=== PATIENT | male | born 2000 | race Caucasian/White ===

== ENCOUNTER 2022-04-10 15:17 | Emergency (ER) | payer BC, SELFPAY ==
--- NOTE | ~2022-04-10 | XR_ITS ---
XR chest 2V DATE: 04/10/2022 18:53 INDICATION: Right chest pain TECHNIQUE: PA and lateral views COMPARISON: None FINDINGS: Normal heart size. No hilar or mediastinal enlargement. No pulmonary infiltrate or consolid ation, pleural effusion or pulmonary vascular congestion or pneumothorax. IMPRESSION: Negative Reviewed, dictated and finalized at location A. IMPRESSION: Negative
[2022-04-10 15:28] VITALS: BP 183/88; PULSE 96; RESP 18; TEMP 36.6; O2SAT 100
--- NOTE | 2022-04-10 15:32 | ECG_ITS ---
Measurements Intervals [place] Rate: 90 P: 57 NM: 164 QRS: 69 QRSD: 101 T: 11 QT: 344 QTc: 421 Interpretive Statements SINUS RHYTHM WITH SINUS ARRHYTHMIA NONSPECIFIC T-WAVE ABNORMALITY BORDERLINE ECG NO PREVIOUS ECG AVAILABLE FOR COMPARISON Electronically Signed On 04-10-2022 16:28:27 CDT by Mamadou Ku M.D.
[2022-04-10 18:44] VITALS: BP 155/86; PULSE 102; RESP 16; O2SAT 98
--- NOTE | 2022-04-10 18:47 | ED.GENADULT ---
HPI - General Adult General Chief complaint: Unspecified <Taylor Rojsa PA-C - Last Filed: 04/10/22 20:57> Stated complaint: Lighheaded, Request Evaulation <JEFFERSON Orr Last Filed: 04/10/22 20:57> Time Seen by Provider: 04/10/22 18:41 <Taylor Rojas PA-C - Last Filed: 04/10/22 20:57> Source: patient <JEFFERSON Orr Last Filed: 04/10/22 20:57> Mode of arrival: ambulatory <JEFFERSON Orr Last Filed: 04/10/22 20:57> Limitations: no limitations <Taylor Rojas PA-C - Last Filed: 04/10/22 20:57> History of Present Illness HPI narrative: This is a 21-year-old male that presents to the emergency department after having episodes of chest pain today. Reports he was at work and right-sided chest tightness. This lasted for a few minutes. It was associated with some lightheadedness. 911 was called. He was evaluated by EMS. His symptoms had resolved prior to their arrival. Reports he was driving home later and on the ride he experienced a similar episode. He once again called 911, but his symptoms resolved again prior to them arriving. He decided to come to the ER to be evaluated. He has no current symptoms. Denies chest pain or shortness of breath. <Taylor Rojas PA-C - Last Filed: 04/10/22 20:57> Related Data Allergies/adverse reactions: Allergies Allergy/AdvReac Type Severity Reaction Status Date / Time No Known Allergies Allergy Verified 04/10/22 19:02 <Taylor Rojas PA-C - Last Filed: 04/10/22 20:57> Review of Systems Review of Systems: CONSTITUTIONAL: Denies fever CARDIOVASCULAR: Reports chest pain. Denies palpitations, or edema. RESPIRATORY: Denies dyspnea. <JEFFERSON Orr Last Filed: 04/10/22 20:57> All systems reviewed & are unremarkable except as noted in HPI and below <Taylor Rojas PA-C - Last Filed: 04/10/22 20:57> FOR[facility], LAT[facility] Past Medical History Medical History: Medical History (Updated 04/11/22 @ 00:00 by Alok Jesi) No active medical problems <Taylor Rojas PA-C - Last Filed: 04/10/22 20:57> Social History Social History: Social History (Updated 04/10/22 @ 18:47 by Taylor Rojas PA-C) Smoking status: Never smoker <Taylor Rojas PA-C - Last Filed: 04/10/22 20:57> Exam Narrative: GENERAL: Well-appearing, well-nourished, and in no acute distress. HEAD: Normocephalic, atraumatic. EYES: PERRLA and EOMI. ENT: Nares clear, no rhinorrhea or epistaxis. Mucous membranes moist. Oropharynx without tonsillar hypertrophy exudate or other lesions. NECK: Supple. No adenopathy or masses. CHEST: Clear to auscultation. No respiratory distress. No wheezes rales or rhonchi HEART: Regular rate and rhythm. No murmur heard. Normal peripheral pulses. EXTREMITIES: Normal range of motion. No edema. SKIN: Warm, dry, no rash. NEURO: No focal deficits. Alert and oriented x3. 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 I have had [id number] time with the patient and his Hazel. patient's workup was negative and he is appropriate for outpatient follow-up with his primary care physician. <Sai Lilly MD - Last Filed: 04/11/22 12:35> Vital Signs Vital signs: Vital Signs Temperature 97.9 F 04/10/22 15:28 Pulse Rate 96 04/10/22 15:28 Respiratory Rate 18 04/10/22 15:28 Blood Pressure 183/88 H 04/10/22 15:28 Pulse Oximetry 100 04/10/22 15:28 Oxygen Delivery Room Air 04/10/22 15:28 Temperature 97.9 F 04/10/22 15:28 Pulse Rate 86 04/10/22 21:05 Respiratory Rate 16 04/10/22 21:05 Blood Pressure 155/90 H 04/10/22 19:01 Pulse Oximetry 100 04/10/22 21:05 Oxygen Delivery Room Air 04/10/22 15:28 <Taylor Rojas PA-C - Last Filed: 04/10/22 20
--- NOTE | 2022-04-10 18:51 | PC.NURSE ---
called lab at 1850 to add on all labs ordered -OR 1850
[2022-04-10 19:01] VITALS: BP 155/90; PULSE 100; PULSE 99; RESP 20; O2SAT 100
[2022-04-10 19:19] LABS: Basophils Percent Auto 0.4 % (0.2-1.2); Eosinophils Percent Auto 0.4 % (0-4.4); Hematocrit 41.1 % (42.0-52.0); Hemoglobin 13.5 g/dL (14.0-18.0); Immature Granulocyte Absolute 0.04 K/mm3 (0.00-0.031); Immature Granulocyte Percent A 0.4 % (0-0.5); Lymphocytes Absolute Auto 2.15 K/mm3 (0.9-3.2); Lymphocytes Percent Auto 19.1 % (18.3-44.2); Mean Corpuscular HGB Conc 32.8 g/dl (32-36); Mean Corpuscular Hemoglobin 26.7 pg (26-34); Mean Corpuscular Volume 81.2 fl (80-100); Mean Platelet Volume 9.7 fl (7.4-10.4); Monocytes Absolute Auto 0.5 K/mm3 (0.1-0.6); Neutrophils Absolute Auto 8.5 K/mm3 (1.3-6.7); Neutrophils Percent Auto 75.7 % (45.5-73.1); Platelet Count Result 350 k/mm3 (150-375); Red Blood Count 5.06 M/mm3 (4.6-6.20); Red Cell Distribution Width 13.3 % (11.5-14.5); White Blood Count 11.2 K/mm3 (4.5-10.0)
--- NOTE | 2022-04-10 19:19 | PC.NURSE ---
Assumed care of pt at this time. Pt alert and upright on stretcher, updated on POC.
[2022-04-10 19:34] LABS: Alanine Aminotransferase 56 U/L (6-50); Albumin Level 4.9 g/dL (3.5-5.1); Alkaline Phosphatase 49 U/L (38-126); Anion Gap 18 mmol/L (8-16); Aspartate Amino Transferase 45 U/L (17-59); Bilirubin,Total 0.3 mg/dL (0.2-1.3); Blood Urea Nitrogen 11 mg/dL (9-20); Calcium 9.2 mg/dL (8.4-10.2); Carbon Dioxide 23 mmol/L (22-30); Chloride 103 mmol/L (98-107); Estimated CRCL calculation 192 ml/min; Estimated Glomerular Filt Rate > 60; Glucose 106 mg/dL (65-110); Sodium 144 mmol/L (137-145)
[2022-04-10 19:38] LABS: Prothrombin Time 12.8 Seconds (11.1-14.7)
[2022-04-10 19:39] LABS: Partial Thromboplastin Time 27.9 SECONDS (22.3-36.8)
[2022-04-10 19:50] LABS: Troponin I < 0.012 ng/mL (0.000-0.034)
[2022-04-10 20:04] LABS: D Dimer 0.41 ug/mL (<0.48)
[2022-04-10 21:05] VITALS: PULSE 86; RESP 16; O2SAT 100
== END 2022-04-10 21:08 | disposition home or self-care (01) ==
PROVIDERS: Emergency Medicine; Physician Assistant; Emergency Provider Emergency Medicine
DX: R07.89 Other chest pain (principal); D64.9 Anemia, unspecified; R94.31 Abnormal electrocardiogram [ECG] [EKG]
CPT/HCPCS: 36415; 71046; 80053; 84484; 85025; 85380; 85610; 85730; 93005; 99284